=== PATIENT | male | born 1960 | race Caucasian/White ===

== ENCOUNTER 2022-05-26 18:24 | Emergency (ER) | payer OTHER ==
[2022-05-26] MEDS ORDERED: Acetaminophen 500 MG TAB ONE (18:47)
== END 2022-05-26 21:10 ==
LOC: NAV ERS 18:24
DX: S52.501A Unspecified fracture of the lower end of right radius, initial encounter for closed fracture (principal); I10 Essential (primary) hypertension; Z87.891 Personal history of nicotine dependence; W01.0XXA Fall on same level from slipping, tripping and stumbling without subsequent striking against object, initial encounter
CPT/HCPCS: 25605